=== PATIENT | female | born 1960 | race Caucasian/White ===

== ENCOUNTER 2020-11-01 11:42 | Inpatient (IN) ==
[2020-11-01] MEDS ORDERED: Isovue-370 500 ML BOTTLE IVP ONE (12:03)
[2020-11-01 12:29] LABS: Basophils % 0.4 %; Eosinophils # 0.1 K/mcL (0.0-0.6); Eosinophils % 1.8 %; Hematocrit 39.2 % (35.3-44.9); Hemoglobin 13.4 g/dL (11.5-15.4); Immature Granulocytes % 0.9 % (0-4); Lymphocytes % 26.8 %; Mean Corpuscular HGB Conc 34.2 g/dL (31.6-35.5); Mean Corpuscular Hemoglobin 29.6 pg (28.0-33.3); Mean Corpuscular Volume 86.7 fL (83.0-100.0); Mean Platelet Volume 8.9 fL (9.4-12.4); Monocytes # 0.9 K/mcL (0.0-1.3); Monocytes % 12.2 %; Neutrophils # 4.3 K/mcL (1.6-8.9); Platelet Count 403 K/mcL (140-400); Red Blood Count 4.52 M/mcL (3.82-4.97); Red Cell Distribution Width 12.3 % (11.5-14.5); Segmented Neutrophils % 57.9 %; White Blood Count 7.4 K/mcL (4.3-11.1)
[2020-11-01 12:49] LABS: Platelet Estimate Increased (Normal); Reactive Lymphocytes Present (Not Present)
[2020-11-01 12:50] LABS: BUN/Creatinine Ratio 9 (6-26); Blood Urea Nitrogen 4 mg/dL (8-23); Calcium 8.4 mg/dL (8.6-10.3); Carbon Dioxide 25 mEq/L (23-29); Chloride 102 mEq/L (98-107); Glucose 100 mg/dL (70-105); Osmolality,Calculated 281 (280-300); Potassium 3.8 mEq/L (3.5-5.1); Sodium 137 mEq/L (136-145); eGFR For African Americans > 60 (> 60); eGFR For Non-African Americans > 60 (> 60)
[2020-11-01] MEDS ORDERED: levoFLOXacin 750 MG TABLET PO ONE (13:55)
[2020-11-01] MEDS ORDERED: Naloxone 0.4 MG/ML INJ IVP PRN (15:13)
[2020-11-01] MEDS ORDERED: MOM Conc 10 ML UD.LIQ PO PRN (15:13)
[2020-11-01] MEDS ORDERED: Ondansetron 4 MG/2 ML VIAL IVP PRN (15:13)
[2020-11-01] MEDS: Fluticasone Propionate Nasal 50 MCG/SPRAY BOTTLE NS SCH (19:54)
[2020-11-01] MEDS: Acetaminophen 325 MG TABLET PO PRN (19:59)
[2020-11-01] MEDS: Budesonide/Formoterol 80/4.5 1 PUFF INH IH SCH (20:34)
[2020-11-01 20:56] LABS: C-Reactive Protein 18 mg/L (Less than 10)
[2020-11-01 21:14] LABS: Ferritin 411 ng/mL (10-120)
[2020-11-02] MEDS: *HR* Enoxaparin 40 MG/0.4 ML SYRINGE SQ SCH (04:57)
[2020-11-02] MEDS: Budesonide/Formoterol 80/4.5 1 PUFF INH IH SCH ×2 (07:53→20:44)
[2020-11-02 08:18] LABS: Basophils % 0.3 %; Hematocrit 37.7 % (35.3-44.9); Hemoglobin 12.8 g/dL (11.5-15.4); Immature Granulocytes % 1.2 % (0-4); Lymphocytes # 1.7 K/mcL (0.6-4.6); Lymphocytes % 19.6 %; Mean Corpuscular Hemoglobin 29.2 pg (28.0-33.3); Mean Corpuscular Volume 86.1 fL (83.0-100.0); Mean Platelet Volume 8.9 fL (9.4-12.4); Monocytes # 1.1 K/mcL (0.0-1.3); Monocytes % 12.6 %; Neutrophils # 5.7 K/mcL (1.6-8.9); Platelet Count 487 K/mcL (140-400); Red Blood Count 4.38 M/mcL (3.82-4.97); Red Cell Distribution Width 12.1 % (11.5-14.5); Segmented Neutrophils % 66.3 %; White Blood Count 8.7 K/mcL (4.3-11.1)
[2020-11-02 08:32] LABS: BUN/Creatinine Ratio 13 (6-26); Blood Urea Nitrogen 6 mg/dL (8-23); Calcium 8.4 mg/dL (8.6-10.3); Carbon Dioxide 23 mEq/L (23-29); Chloride 102 mEq/L (98-107); Glucose 155 mg/dL (70-105); Osmolality,Calculated 281 (280-300); Sodium 135 mEq/L (136-145); eGFR For African Americans > 60 (> 60); eGFR For Non-African Americans > 60 (> 60)
[2020-11-02] MEDS: Acetaminophen 325 MG TABLET PO PRN (09:23)
[2020-11-02] MEDS: Benzonatate 100 MG CAPSULE PO PRN (09:23)
[2020-11-02] MEDS: *HR* LORazepam 0.5 MG TABLET PO PRN ×2 (10:08→20:46)
[2020-11-02] MEDS: levoFLOXacin 750 MG/150 ML 750 MG/150 ML BAG IVPB SCH (14:52)
[2020-11-02] MEDS: Fluticasone Propionate Nasal 50 MCG/SPRAY BOTTLE NS SCH (20:46)
[2020-11-02] MEDS: Mag Hydrox/Al Hydrox/Simeth 30 ML UDC PO PRN (20:46)
[2020-11-03] MEDS: Acetaminophen 325 MG TABLET PO PRN ×2 (00:40→10:49)
[2020-11-03] MEDS: *HR* Enoxaparin 40 MG/0.4 ML SYRINGE SQ SCH (04:59)
[2020-11-03 06:37] LABS: Basophils % 0.2 %; Hematocrit 37.2 % (35.3-44.9); Hemoglobin 12.6 g/dL (11.5-15.4); Immature Granulocytes % 1.5 % (0-4); Lymphocytes # 2.4 K/mcL (0.6-4.6); Lymphocytes % 12.4 %; Mean Corpuscular HGB Conc 33.9 g/dL (31.6-35.5); Mean Corpuscular Volume 85.7 fL (83.0-100.0); Mean Platelet Volume 8.9 fL (9.4-12.4); Monocytes # 1.7 K/mcL (0.0-1.3); Monocytes % 8.8 %; Neutrophils # 15.2 K/mcL (1.6-8.9); Platelet Count 599 K/mcL (140-400); Red Blood Count 4.34 M/mcL (3.82-4.97); Red Cell Distribution Width 12.4 % (11.5-14.5); Segmented Neutrophils % 77.1 %; White Blood Count 19.7 K/mcL (4.3-11.1)
[2020-11-03 07:10] LABS: BUN/Creatinine Ratio 21 (6-26); Blood Urea Nitrogen 11 mg/dL (8-23); Calcium 8.4 mg/dL (8.6-10.3); Carbon Dioxide 24 mEq/L (23-29); Chloride 103 mEq/L (98-107); Glucose 133 mg/dL (70-105); Osmolality,Calculated 283 (280-300); Potassium 4.6 mEq/L (3.5-5.1); Sodium 136 mEq/L (136-145); eGFR For African Americans > 60 (> 60); eGFR For Non-African Americans > 60 (> 60)
[2020-11-03] MEDS: Budesonide/Formoterol 80/4.5 1 PUFF INH IH SCH ×2 (08:52→20:28)
[2020-11-03 09:52] LABS: C-Reactive Protein < 5 mg/L (Less than 10)
[2020-11-03 10:10] LABS: Ferritin 365 ng/mL (10-120)
[2020-11-03] MEDS: Benzonatate 100 MG CAPSULE PO PRN (10:48)
[2020-11-03] MEDS: *HR* LORazepam 0.5 MG TABLET PO PRN (10:49)
[2020-11-03] MEDS: levoFLOXacin 750 MG/150 ML 750 MG/150 ML BAG IVPB SCH (15:19)
[2020-11-03] MEDS: Fluticasone Propionate Nasal 50 MCG/SPRAY BOTTLE NS SCH (20:41)
[2020-11-04] MEDS: *HR* Enoxaparin 40 MG/0.4 ML SYRINGE SQ SCH (05:36)
[2020-11-04 07:32] LABS: Basophils # 0.1 K/mcL (0.0-0.2); Basophils % 0.3 %; Hematocrit 35.6 % (35.3-44.9); Hemoglobin 12.1 g/dL (11.5-15.4); Immature Granulocytes % 3.9 % (0-4); Lymphocytes # 2.7 K/mcL (0.6-4.6); Lymphocytes % 13.4 %; Mean Corpuscular Hemoglobin 29.3 pg (28.0-33.3); Mean Corpuscular Volume 86.2 fL (83.0-100.0); Mean Platelet Volume 8.9 fL (9.4-12.4); Monocytes # 2.4 K/mcL (0.0-1.3); Monocytes % 11.7 %; Neutrophils # 14.2 K/mcL (1.6-8.9); Platelet Count 652 K/mcL (140-400); Red Blood Count 4.13 M/mcL (3.82-4.97); Red Cell Distribution Width 12.5 % (11.5-14.5); Segmented Neutrophils % 70.7 %; White Blood Count 20.1 K/mcL (4.3-11.1)
[2020-11-04 07:46] LABS: BUN/Creatinine Ratio 24 (6-26); Blood Urea Nitrogen 11 mg/dL (8-23); Calcium 8.3 mg/dL (8.6-10.3); Carbon Dioxide 26 mEq/L (23-29); Chloride 103 mEq/L (98-107); Glucose 129 mg/dL (70-105); Osmolality,Calculated 281 (280-300); Potassium 4.6 mEq/L (3.5-5.1); Sodium 135 mEq/L (136-145); eGFR For African Americans > 60 (> 60); eGFR For Non-African Americans > 60 (> 60)
[2020-11-04] MEDS: Budesonide/Formoterol 80/4.5 1 PUFF INH IH SCH ×2 (08:05→20:50)
[2020-11-04] MEDS: *HR* LORazepam 0.5 MG TABLET PO PRN ×2 (08:41→16:20)
[2020-11-04] MEDS: Benzonatate 100 MG CAPSULE PO PRN (08:41)
[2020-11-04] MEDS: Acetaminophen 325 MG TABLET PO PRN ×2 (08:41→14:57)
[2020-11-04] MEDS: levoFLOXacin 750 MG/150 ML 750 MG/150 ML BAG IVPB SCH (14:52)
[2020-11-04] MEDS: Nicotine 14 MG PATCH.TD24 TD SCH (14:53)
[2020-11-04] MEDS: Mag Hydrox/Al Hydrox/Simeth 30 ML UDC PO PRN (19:54)
[2020-11-04] MEDS: Fluticasone Propionate Nasal 50 MCG/SPRAY BOTTLE NS SCH (19:54)
[2020-11-05] MEDS: *HR* Enoxaparin 40 MG/0.4 ML SYRINGE SQ SCH (05:54)
[2020-11-05 06:26] LABS: Basophils # 0.2 K/mcL (0.0-0.2); Basophils % 0.8 %; Hematocrit 39.2 % (35.3-44.9); Hemoglobin 13.2 g/dL (11.5-15.4); Immature Granulocytes % 4.9 % (0-4); Lymphocytes # 3.4 K/mcL (0.6-4.6); Lymphocytes % 16.4 %; Mean Corpuscular HGB Conc 33.7 g/dL (31.6-35.5); Mean Corpuscular Hemoglobin 29.2 pg (28.0-33.3); Mean Corpuscular Volume 86.7 fL (83.0-100.0); Mean Platelet Volume 8.8 fL (9.4-12.4); Monocytes # 2.4 K/mcL (0.0-1.3); Monocytes % 11.6 %; Neutrophils # 13.8 K/mcL (1.6-8.9); Platelet Count 773 K/mcL (140-400); Red Blood Count 4.52 M/mcL (3.82-4.97); Red Cell Distribution Width 12.6 % (11.5-14.5); Segmented Neutrophils % 66.3 %; White Blood Count 20.8 K/mcL (4.3-11.1)
[2020-11-05 06:45] LABS: BUN/Creatinine Ratio 22 (6-26); Blood Urea Nitrogen 13 mg/dL (8-23); Calcium 8.4 mg/dL (8.6-10.3); Carbon Dioxide 26 mEq/L (23-29); Chloride 100 mEq/L (98-107); Glucose 142 mg/dL (70-105); Osmolality,Calculated 281 (280-300); Potassium 4.5 mEq/L (3.5-5.1); Sodium 134 mEq/L (136-145); eGFR For African Americans > 60 (> 60); eGFR For Non-African Americans > 60 (> 60)
[2020-11-05] MEDS: Budesonide/Formoterol 80/4.5 1 PUFF INH IH SCH ×2 (07:42→21:31)
[2020-11-05] MEDS: Acetaminophen 325 MG TABLET PO PRN (09:45)
[2020-11-05] MEDS: *HR* LORazepam 0.5 MG TABLET PO PRN (09:45)
[2020-11-05] MEDS: Nicotine 14 MG PATCH.TD24 TD SCH (09:45)
[2020-11-05] MEDS: Benzonatate 100 MG CAPSULE PO PRN (09:45)
[2020-11-05 11:31] LABS: C-Reactive Protein < 5 mg/L (Less than 10)
[2020-11-05 11:39] LABS: Ferritin 288 ng/mL (10-120)
[2020-11-05] MEDS: Loratadine/Pseudophed (12 HR) 1 EACH TABLET PO SCH ×2 (12:35→21:46)
[2020-11-05] MEDS: levoFLOXacin 750 MG/150 ML 750 MG/150 ML BAG IVPB SCH (15:00)
[2020-11-05] MEDS: Fluticasone Propionate Nasal 50 MCG/SPRAY BOTTLE NS SCH (21:46)
[2020-11-06 05:43] LABS: Hematocrit 39.5 % (35.3-44.9); Hemoglobin 13.3 g/dL (11.5-15.4); Mean Corpuscular HGB Conc 33.7 g/dL (31.6-35.5); Mean Corpuscular Volume 86.1 fL (83.0-100.0); Mean Platelet Volume 8.8 fL (9.4-12.4); Platelet Count 811 K/mcL (140-400); Red Blood Count 4.59 M/mcL (3.82-4.97); Red Cell Distribution Width 12.5 % (11.5-14.5); White Blood Count 23.8 K/mcL (4.3-11.1)
[2020-11-06] MEDS: *HR* Enoxaparin 40 MG/0.4 ML SYRINGE SQ SCH (05:55)
[2020-11-06 06:00] LABS: BUN/Creatinine Ratio 32 (6-26); Blood Urea Nitrogen 20 mg/dL (8-23); Calcium 8.3 mg/dL (8.6-10.3); Carbon Dioxide 27 mEq/L (23-29); Chloride 100 mEq/L (98-107); Glucose 130 mg/dL (70-105); Osmolality,Calculated 282 (280-300); Potassium 4.5 mEq/L (3.5-5.1); Sodium 134 mEq/L (136-145); eGFR For African Americans > 60 (> 60); eGFR For Non-African Americans > 60 (> 60)
[2020-11-06 06:43] LABS: Lymphocytes # 4.8 K/mcL (0.6-4.6); Monocytes # 1.9 K/mcL (0.0-1.3); Neutrophils # 16.7 K/mcL (1.6-8.9)
[2020-11-06 06:44] LABS: Platelet Estimate Increased (Normal)
[2020-11-06] MEDS: Budesonide/Formoterol 80/4.5 1 PUFF INH IH SCH ×2 (08:47→21:53)
[2020-11-06] MEDS: Acetaminophen 325 MG TABLET PO PRN (10:02)
[2020-11-06] MEDS: Nicotine 14 MG PATCH.TD24 TD SCH (10:02)
[2020-11-06] MEDS: Loratadine/Pseudophed (12 HR) 1 EACH TABLET PO SCH ×2 (10:02→22:29)
[2020-11-06] MEDS: Benzonatate 100 MG CAPSULE PO PRN (10:03)
[2020-11-06] MEDS: *HR* LORazepam 0.5 MG TABLET PO PRN (10:03)
[2020-11-06] MEDS ORDERED: levoFLOXacin 750 MG TABLET PO SCH (14:00)
[2020-11-06] MEDS: Fluticasone Propionate Nasal 50 MCG/SPRAY BOTTLE NS SCH (22:28)
[2020-11-07 05:06] LABS: Basophils % 0.2 %; Eosinophils # 0.1 K/mcL (0.0-0.6); Eosinophils % 0.6 %; Hematocrit 40.2 % (35.3-44.9); Hemoglobin 13.5 g/dL (11.5-15.4); Lymphocytes # 5.1 K/mcL (0.6-4.6); Lymphocytes % 26.9 %; Mean Corpuscular HGB Conc 33.6 g/dL (31.6-35.5); Mean Corpuscular Hemoglobin 29.3 pg (28.0-33.3); Mean Corpuscular Volume 87.2 fL (83.0-100.0); Mean Platelet Volume 8.6 fL (9.4-12.4); Monocytes % 10.2 %; Platelet Count 727 K/mcL (140-400); Red Blood Count 4.61 M/mcL (3.82-4.97); Red Cell Distribution Width 12.7 % (11.5-14.5); Segmented Neutrophils % 52.1 %; White Blood Count 19.1 K/mcL (4.3-11.1)
[2020-11-07 05:28] LABS: BUN/Creatinine Ratio 32 (6-26); Blood Urea Nitrogen 21 mg/dL (8-23); Calcium 8.1 mg/dL (8.6-10.3); Carbon Dioxide 27 mEq/L (23-29); Chloride 100 mEq/L (98-107); Glucose 129 mg/dL (70-105); Osmolality,Calculated 287 (280-300); Potassium 3.9 mEq/L (3.5-5.1); Sodium 136 mEq/L (136-145); eGFR For African Americans > 60 (> 60); eGFR For Non-African Americans > 60 (> 60)
[2020-11-07] MEDS: Acetaminophen 325 MG TABLET PO PRN ×2 (05:39→11:44)
[2020-11-07] MEDS: *HR* Enoxaparin 40 MG/0.4 ML SYRINGE SQ SCH (05:41)
[2020-11-07 06:55] LABS: Platelet Estimate Increased (Normal)
[2020-11-07] MEDS: Nicotine 14 MG PATCH.TD24 TD SCH (08:13)
[2020-11-07] MEDS: Loratadine/Pseudophed (12 HR) 1 EACH TABLET PO SCH (08:13)
[2020-11-07] MEDS: Budesonide/Formoterol 80/4.5 1 PUFF INH IH SCH (09:30)
[2020-11-07 14:35] VITALS: BP 112/61; PULSE 99; RESP 16; TEMP 98; O2SAT 91
== END 2020-11-07 15:00 | disposition home or self-care (01) | DRG 177 ==
LOC: INPPIK 11:42 → EMEROOPIK 11:42 → INPPIK 15:08
PROVIDERS: ADMIT Family Medicine; ATTEND Family Medicine